=== PATIENT | female | born 1995 | race Asian ===

== ENCOUNTER 2020-03-14 15:16 | Emergency (ER) | payer SELFPAY ==
[~2020-03-14] VITALS: Ht 149.9 cm; Wt 48.0 kg
--- NOTE | 2020-03-14 16:03 | NUR ---
PT HAS CO URINARY SYMPTOMS, BURNING WHILE VOIDING, CRAMPING FOR 3 DAYS. [facility] STRAIGHT CATH SENT
[2020-03-14 16:16] LABS: MICROSCOPIC AUTO
[2020-03-14 16:17] LABS: BASOPHILS # (AUTO) 0.02 x10^3/uL (0-0.1); BASOPHILS % (AUTO) 0 % (0-1); EOSINOPHILS # (AUTO) 0.69 x10^3/uL (0-0.4); EOSINOPHILS % (AUTO) 9 % (1-7); LYMPHOCYTES # (AUTO) 2.54 x10^3/uL (1-3.4); LYMPHOCYTES % (AUTO) 32 % (22-44); MD NO; MEAN CORPUSCULAR HEMOGLOBIN 30.9 pg (27.0-34.8); MEAN CORPUSCULAR HGB CONC 32.9 g/dL (32.4-35.8); MEAN PLATELET VOLUME 8.8 fL (7.4-10.4); MONOCYTES % (AUTO) 5 % (2-9); NEUTROPHILS # (AUTO) 4.22 x10^3/uL (1.8-6.8); NEUTROPHILS % (AUTO) 54 % (42-75); PLATELET COUNT 256 x10^3/uL (130-400); RED BLOOD COUNT 4.22 x10^6/uL (3.82-5.3)
[2020-03-14 16:29] LABS: ALBUMIN 3.9 g/dL (3.4-5.0); ANION GAP 6 mmol/L (5-15); CALCIUM 8.7 mg/dL (8.5-10.1); CHLORIDE 108 mmol/L (98-107)
--- NOTE | 2020-03-14 16:35 | NUR ---
PT AMBULATED TO BATHROOM
[2020-03-14 16:48] LABS: CREATININE 0.63 mg/dL (0.55-1.02)
[2020-03-14 16:49] LABS: ALANINE AMINOTRANSFERASE 19 U/L (12-78); ALKALINE PHOSPHATASE 44 U/L (45-117); BILIRUBIN,TOTAL 0.7 mg/dL (0.2-1.0); TOTAL PROTEIN 7.7 g/dL (6.4-8.2)
[2020-03-14 17:40] VITALS: BP 92/48
--- NOTE | 2020-03-14 17:41 | NUR ---
POC TO RECEIVE US FOR . DENIES ANY BLEEDING OR CRAMPING
--- NOTE | 2020-03-14 18:31 | NUR ---
PT RESTING, VSS. CALL LIGHT IN REACH
--- NOTE | 2020-03-14 19:06 | NUR ---
Report received from ROXANNA Denise. This RN to assume care. Patient up for discharge. Instructions given. All questions and concerns addressed. Patient ambulatory with a steady gait. Belongings with patient.
== END 2020-03-14 19:08 | disposition home or self-care (01) ==
LOC: ED 16:42
DX: O23.11 Infections of bladder in pregnancy, first trimester (principal); Z3A.08 8 weeks gestation of pregnancy
CPT/HCPCS: 36415; 76700; 76801; 80053; 81001; 83690; 84702; 84703; 85025; 87077; 87086; 87186; 99285

== ENCOUNTER 2020-04-06 18:45 | Emergency (ER) | payer SELFPAY ==
[~2020-04-06] VITALS: Ht 149.9 cm; Wt 48.7 kg
--- NOTE | 2020-04-06 19:57 | NUR ---
PT AMBULATORY FROM TRIAGE/ C/O VAG BLEEDING LAST NIGHT. . ~8WKS. PT CHANGED INTO GOWN. AT BS. AWARE OF PLAN FOR U/S & LABS. DENIES ANY NEEDS.
[2020-04-06 20:41] LABS: BASOPHILS % (AUTO) 1 % (0-1); EOSINOPHILS % (AUTO) 8 % (1-7); LYMPHOCYTES % (AUTO) 25 % (22-44); MEAN CORPUSCULAR HGB CONC 33.8 g/dL (32.4-35.8); MEAN PLATELET VOLUME 9.1 fL (7.4-10.4); MONOCYTES % (AUTO) 5 % (2-9); NEUTROPHILS % (AUTO) 62 % (42-75); PLATELET COUNT 272 x10^3/uL (130-400); RED BLOOD COUNT 4.24 x10^6/uL (3.82-5.3); RED CELL DISTRIBUTION WIDTH 13.4 % (9.6-15.2)
[2020-04-06 20:44] VITALS: BP 98/55
--- NOTE | 2020-04-06 20:44 | NUR ---
PT BACK FROM U/S. S. WILL CTM.
[2020-04-06 20:48] LABS: ALBUMIN 3.9 g/dL (3.4-5.0); ANION GAP 5 mmol/L (5-15); CALCIUM 8.8 mg/dL (8.5-10.1); CHLORIDE 107 mmol/L (98-107)
[2020-04-06 20:52] LABS: MD NO
[2020-04-06 21:09] LABS: CREATININE 0.64 mg/dL (0.55-1.02)
== END 2020-04-06 21:54 | disposition home or self-care (01) ==
LOC: ED 20:00
DX: O03.4 Incomplete spontaneous abortion without complication (principal)
CPT/HCPCS: 36415; 76801; 80048; 82040; 84702; 85025; 99284